=== PATIENT | male | born 1965 ===

== ENCOUNTER 2016-11-24 19:36 | Emergency (ER) | payer OTHER ==
[2016-11-24 20:04] VITALS: BP 136/82; PULSE 72; RESP 17; TEMP 99.7; O2SAT 100
--- NOTE | 2016-11-24 20:37 | ED PDOC ---
HPI: General Adult Time Seen by Provider: 11/24/16 20:37 Chief Complaint (Nursing): Hip Pain Chief Complaint (Provider): right hip pain History Per: Patient Additional Complaint(s): 51-year-old male presents to emergency department for review of x-rays that were obtained as outpatient earlier today. Patient states he has had pain to right hip for one year. He was seen by his assembly manager, Dr. Dai who ordered x-rays of his right hip, right femur and right knee. Results of x-rays were sent to Dr. Dai today and he advised the patient come to ED for further evaluation. Patient denies any fall or trauma. Patient also states he has history of chronic low back pain and takes gabapentin and flexeril daily for pain. He denies any associated fever or chills. Past Medical History Reviewed: Historical Data, Nursing Documentation, Vital Signs Vital Signs: Last Vital Signs Temp 99.7 F H 11/24/16 19:57 Pulse 72 11/24/16 19:57 Resp 17 11/24/16 19:57 BP 136/82 11/24/16 19:57 Pulse Ox 100 11/24/16 23:05 - Medical History PMH: Arthritis, Back Problems, Gastritis, HTN - Surgical History Surgical History: No Surg Hx - Family History Family History: States: No Known Family Hx - Living Arrangements Living Arrangements: With Family - Social History Current smoker - smoking cessation education provided: No Alcohol: None Drugs: Denies - Home Medications Home Medications: Ambulatory Orders Medication Instructions Recorded Atenolol/Chlorthalidone 11/24/16 [Atenolol-Chlorthalidone 50-25] Cyclobenzaprine [Flexeril] 11/24/16 Gabapentin [Neurontin] 11/24/16 Ibuprofen [Motrin Tab] 800 mg PO Q8 PRN #20 tab 11/24/16 traMADol [Ultram] 50 mg PO TID PRN #15 tab 11/24/16 - Allergies Allergies/Adverse Reactions: Allergies Allergy/AdvReac Type Severity Reaction Status Date / Time No Known Allergies Allergy Unverified 11/24/16 20:04 Review of Systems ROS Statement: Except As Marked, All Systems Reviewed And Found Negative Constitutional: Negative for: Fever, Chills Cardiovascular: Negative for: Chest Pain Respiratory: Negative for: Cough Musculoskeletal: Positive for: Other (right hip pain x 1 year) Neurological: Negative for: Weakness, Numbness, Incoordination, Altered Mental Status, Headache, Dizziness Physical Exam - Reviewed Nursing Documentation Reviewed: Yes Vital Signs Reviewed: Yes - Physical Exam Appears: Positive for: Well, Non-toxic, No Acute Distress Skin: Negative for: Rash Eye Exam: Positive for: Normal appearance, EOMI, PERRL Cardiovascular/Chest: Positive for: Regular Rate, Rhythm Respiratory: Positive for: Normal Breath Sounds Back: Positive for: Normal Inspection, Vertebral Tenderness (lumbar) Extremity: Positive for: Other (full rom right hip with pain, normal distal sensation right lower extremity) Neurologic/Psych: Positive for: Alert, Oriented - ECG O2 Sat by Pulse Oximetry: 100 Pulse Ox Interpretation: Normal - Other Rad CT right hip X-Ray: Read By Radiologist X-Ray Interpretation: see below Medical Decision Making Medical Decision Makin51 year old with right hip pain, sent to ED by his assembly manager for review of x- rays completed today X-rays right knee, hip and femur reviewed - results indicate avascular necrosis Call placed to ortho nutritional services cook, Dr. Blum. X-ray results were d/w Dr. Blum and he states to order CT right hip and discharge patient and instruct him to follow up in office on Sunday. Plan: CT right hip - ordered as per Dr. Blum IM toradol for pain Patient was given copy of CT on disc and was instructed to call Dr. Blum's office on Sunday to arrange for follow up visit. 3 calls placed to, patient's assembly manager, Dr. Leonardo, no call back received. CT: FINDINGS: Bones/joints: Heterogeneous attenuation of the bone marrow. Femoral head cysts are detected both centrally and laterally. Cysts are also noted within the acetabulum. A crescentic subchondral line with segmental flattening of the femoral head is detected, consistent with femoral head collapse. Decreased femoral acetabular joint space is also detected, with depression and collapse of the femoral head. Irregular contour of the femoral head is noted. Soft tissues: Unremarkable. 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 Patient has crutches at home, copy of CT on disc given. Patient was given rx motrin and tramadol. He was advised to call Dr. Blum's office on Sunday to arrange for follow up visit. Disposition - Clinical Impression Clinical Impression: Hip pain, Avascular necrosis of bone of right hip - Patient ED Disposition Is Patient to be Admitted: No Counseled Patient/Family Regarding: Studies Performed, Diagnosis, Need For Followup, Rx Given - Disposition Referrals: Fantasma Blum III, MD [Staff Provider] - Disposition: Routine/Home Disposition Time: 23:49 Condition: STABLE Additional Instructions: Take rx meds as directed. Rest as much as possible. Call orthopedist on Sunday to arrange for follow up visit. Prescriptions: Ibuprofen [Motrin Tab] 800 mg PO Q8 PRN #20 tab PRN Reason: Pain, Moderate (4-7) traMADol [Ultram] 50 mg PO TID PRN #15 tab PRN Reason: Pain, Moderate (4-7) Instructions: Hip Pain (ED) Forms: [facility] (Moroccan) Print Language: MALAY
--- NOTE | 2016-11-24 23:05 | CT ---
EXAM: CT Right Lower Extremity Without Intravenous Contrast, Hip CLINICAL HISTORY: 51 years old, male; Pain; Hip; Right; Additional info: Hip pain for one year TECHNIQUE: Axial computed tomography images of the right hip without intravenous contrast. All CT scans at this facility use one or more dose reduction techniques, viz.: automated exposure control; ma/kV adjustment per patient size (including targeted exams where dose is matched to indication; i.e. head); or iterative reconstruction technique. Coronal and sagittal reformatted images were created and reviewed. COMPARISON: CR - HIP W/WO PELVIS MIN 4 VIEWS RT 11/24/2016 12:47:50 PM FINDINGS: Bones/joints: Heterogeneous attenuation of the bone marrow. Femoral head cysts are detected both centrally and laterally. Cysts are also noted within the acetabulum. A crescentic subchondral line with segmental flattening of the femoral head is detected, consistent with femoral head collapse. Decreased femoral acetabular joint space is also detected, with depression and collapse of the femoral head. Irregular contour of the femoral head is noted. Soft tissues: Unremarkable. 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
== END 2016-11-25 00:09 | disposition home or self-care (01) ==
LOC: H.ER 19:36
DX: M87.051 Idiopathic aseptic necrosis of right femur (principal); F32.9 Major depressive disorder, single episode, unspecified; I10 Essential (primary) hypertension
CPT/HCPCS: 73700; 96372; 99282; J1885

== ENCOUNTER 2018-07-14 16:19 | Emergency (ER) | payer OTHER ==
[2018-07-14 16:33] VITALS: BMI 29.8
[2018-07-14 16:34] VITALS: RESP 18; TEMP 98.7; O2SAT 100
--- NOTE | 2018-07-14 16:55 | ED PDOC ---
Lower Extremity Pain/Injury Time Seen by Provider: 07/14/18 16:35 Chief Complaint (Nursing): Lower Extremity Problem/Injury Chief Complaint (Provider): Lower Extremity Problem/Injury History Per: Patient History/Exam Limitations: no limitations Onset/Duration Of Symptoms: Days Current Symptoms Are (Timing): Still Present Additional Complaint(s): 53 y/o male states for the past two months he has had atraumatic left knee and lower back pain. Patient reports that 11 months ago he had a right hip replacement performed by Dr. Mane in [facility] due to vascular n ecrosis. Patient states that pain is alleviated with Tylenol but returns. Otherwise, patient denies dysuria, hematuria, incontinence, numbness, tingling and abdominal pain. Of note, patient was informed by his PMD two months ago that his creatinine was 1.4. PMD: Trisha Nam Past Medical History Reviewed: Historical Data, Nursing Documentation, Vital Signs Vital Signs: Last Vital Signs Temp 98.7 F 07/14/18 16:33 Pulse 62 07/14/18 16:33 Resp 18 07/14/18 16:33 BP 126/74 07/14/18 16:33 Pulse Ox 100 07/14/18 16:33 - Medical History PMH: Arthritis, Back Problems, Gastritis, HTN Other PMH: vascular necrosis - Surgical History Other surgeries: right hip replacement. - Family History Family History: States: No Known Family Hx - Home Medications Home Medications: Ambulatory Orders Medication Instructions Recorded Atenolol/Chlorthalidone 11/24/16 [Atenolol-Chlorthalidone 50-25] Cyclobenzaprine [Flexeril] 11/24/16 Gabapentin [Neurontin] 11/24/16 Ibuprofen [Motrin Tab] 800 mg PO Q8 PRN #20 tab 11/24/16 traMADol [Ultram] 50 mg PO TID PRN #15 tab 11/24/16 Tramadol HCl [Ultram] 50 mg PO BID PRN #7 tablet 07/14/18 - Allergies Allergies/Adverse Reactions: Allergies Allergy/AdvReac Type Severity Reaction Status Date / Time No Known Allergies Allergy Unverified 11/24/16 20:04 Review of Systems ROS Statement: Except As Marked, All Systems Reviewed And Found Negative Gastrointestinal: Negative for: Abdominal Pain Genitourinary Male: Negative for: Dysuria, Incontinence, Hematuria Musculoskeletal: Positive for: Back Pain (lower), Leg Pain (left knee pain) Neurological: Negative for: Numbness (or tingling) Physical Exam - Reviewed Nursing Documentation Reviewed: Yes Vital Signs Reviewed: Yes - Physical Exam Appears: Positive for: No Acute Distress Head Exam: Positive for: ATRAUMATIC, NORMAL INSPECTION, NORMOCEPHALIC Skin: Positive for: Normal Color, Warm. Negative for: Rash Eye Exam: Positive for: Normal appearance ENT: Positive for: Normal ENT Inspection, TM Is/Are (non-erythematous, non- bulging b/l). Negative for: Pharyngeal Erythema, Tonsillar Exudate, Tonsillar Swelling Neck: Positive for: Normal, Painless ROM, Supple Cardiovascular/Chest: Positive for: Regular Rate, Rhythm Respiratory: Positive for: Normal Breath Sounds. Negative for: Respiratory Distress Gastrointestinal/Abdominal: Positive for: Soft. Negative for: Tenderness, Organomegaly Back: Positive for: Normal Inspection. Negative for: L CVA Tenderness, R CVA Tenderness, Vertebral Tenderness Extremity: Positive for: Normal ROM (Full ROM actively to the bilateral knees. ). Negative for: Tenderness, Deformity, Swelling, Other (warmth) - ECG O2 Sat by Pulse Oximetry: 100 (RA) Pulse Ox Interpretation: Normal - Progress ED Course And Treament: [place] per [place] last narcotic Rx was given on 09/12/2017 Oxycodone 5mg #30. Will be prescribed Ultram for pain. Patient also verbally counseled on appropriate use of opioids including risks and safety plan Medical Decision Making Medical Decision Making: Time: 1643 Plan: -- Knee 3 Views Left XR -- Ultram 50 mg PO -- LS Spine AP/LAP XR PROCEDURE: Left Knee Radiographs. HISTORY: Pain. COMPARISON: None. TECHNIQUE: 2 views obtained. FINDINGS: BONES: No acute fracture. JOINTS: No significant spurring. JOINT EFFUSION: None. OTHER FINDINGS: None. IMPRESSION: No demonstrated fracture or dislocation. PROCEDURE: Radiographs of the Lumbar Spine. HISTORY: pain COMPARISON: No prior. TECHNIQUE: 5 views obtained. FINDINGS: BONES: Normal alignment. No listhesis. No fracture. DISC SPACES: Unremarkable. OTHER FINDINGS: None. IMPRESSION: Unremarkable radiographs of the lumbar spine. Pt. now c/o sore throat x 2 days. Denies fever, cough, congestion, rash. No LAD, pharyngeal/tonsillar erythema or exudates. Scribe Attestation: Documented by Keturah Perdomo, acting as a scribe Keena Horta PA-C. Provider Scribe Attestation: All medical record entries made by the Scribe were at my direction and personal ly dictated by me. I have reviewed the chart and agree that the record accurately reflects my personal performance of the history, physical exam, medical decision making, and the department course for this patient. I have also personally directed, reviewed, and agree with the discharge instructions and disposition. Disposition - Clinical Impression Clinical Impression: Knee pain, Low back pain, Viral pharyngitis - Patient ED Disposition Is Patient to be Admitted: No - Disposition Disposition: Routine/Home Disposition Time: 19:00 Condition: IMPROVED Additional Instructions: FOLLOW UP WITH YOUR DOCTOR FOR FURTHER EVALUATION RETURN TO ED IMMEDIATELY IF SYMPTOMS WORSEN SHAYNE MCKAY, thank you for letting us take care of you today. Your provider was Mihai Au MD and you were treated for LT KNEE PAIN. The emergency medical care you received today was directed at your acute symptoms. If you were prescribed any medication, please fill it and take as directed. It may take several days for your symptoms to resolve. Return to the Emergency Department if your symptoms worsen, do not improve, or if you have any other problems. Please contact your doctor or call one of the physicians/clinics you have been referred to that are listed on the Patient Visit Information form that is included in your discharge packet. Bring any paperwork you were given at discharge with you along with any medications you are taking to your follow up visit. Our treatment cannot replace ongoing medical care by a primary care provider outside of the emergency department. Thank you for allowing the [facility] team to be part of your care today. If you had an X-Ray or CT scan: A Radiologist will review the ED reading if any change in treatment is needed we will contact you. If you had a blood, urine, or wound culture: It will take several days for the results, if any change in treatment is needed we will contact you. If you had an STI test: It will take 48 hours for the results. Please call after 1 week if you have not heard back. Prescriptions: Tramadol HCl [Ultram] 50 mg PO BID PRN #7 tablet PRN Reason: Pain Instructions: Low Back Pain (DC), Sore Throat, Adult (DC), Opioids for Short- Term Treatment of Pain, Knee Pain (DC) Forms: [employer] (Frisian)
--- NOTE | 2018-07-14 17:30 | RAD ---
Date of service: 07/14/2018 PROCEDURE: Radiographs of the Lumbar Spine. HISTORY: pain COMPARISON: No prior. TECHNIQUE: 5 views obtained. FINDINGS: BONES: Normal alignment. No listhesis. No fracture. DISC SPACES: Unremarkable. OTHER FINDINGS: None. IMPRESSION: Unremarkable radiographs of the lumbar spine.
--- NOTE | 2018-07-14 17:31 | RAD ---
Date of service: 07/14/2018 PROCEDURE: Left Knee Radiographs. HISTORY: Pain. COMPARISON: None. TECHNIQUE: 2 views obtained. FINDINGS: BONES: No acute fracture. JOINTS: No significant spurring. JOINT EFFUSION: None. OTHER FINDINGS: None. IMPRESSION: No demonstrated fracture or dislocation.
[2018-07-14 19:39] VITALS: BP 114/57; PULSE 54
== END 2018-07-14 19:48 | disposition home or self-care (01) ==
LOC: H.ER 16:19
DX: M25.562 Pain in left knee (principal); M54.5 Low back pain; J02.9 Acute pharyngitis, unspecified; I10 Essential (primary) hypertension; Z96.641 Presence of right artificial hip joint